=== PATIENT | male | born 1955 | race Caucasian/White ===

== ENCOUNTER 2020-11-15 11:45 | Outpatient (REF) | payer MEDICARE, SELFPAY ==
--- NOTE | ~2020-11-15 | XR_ITS ---
EXAMINATION: XR RIBS, LEFT CLINICAL INFORMATION: Pleurodynia. COMPARISON: None TECHNIQUE: 3 views of the left ribs were obtained. FINDINGS: There is a small left pleural effusion. Mild superjacent linear markings are seen as well. A definitive pneumothorax is not seen. The right lung is clear. The heart and mediastinal structures are unremarkable. Deformity seen in the anterolateral aspect of the first, second and sixth ribs. Deformity is also seen anteriorly in the left second and third ribs. XR/XR ribs LT min 3V w [id number] IMPRESSION: 1. Acute multilevel left rib fractures as detailed above. Additional acute nondisplaced fractures are suspected, but not as clearly visualized. 2. Small left pleural effusion with superjacent mild atelectasis.
[2020-11-15 13:52] LABS: MANUAL DIFF FLAG NO
[2020-11-15 13:59] LABS: Basophils Absolute Auto 0.1 X10*3/uL (0.0-0.2); Basophils Percent Auto 0.5 % (0-2); Eosinophils Absolute Auto 0.1 X10*3/uL (0.0-0.4); Eosinophils Percent Auto 0.5 % (0-4); Hematocrit 44.8 % (42-52); Hemoglobin 15.5 g/dl (14.0-18.0); Imm Gran Abs Auto 0.04 X10*3/uL (0.00-0.03); Imm Gran Pct Auto 0.4 % (0.0-0.4); Lymphocytes Absolute Auto 2.9 X10*3/uL (1.2-4.9); Lymphocytes Percent Auto 27.4 % (20-40); Mean Corpuscular HGB Conc 34.6 g/dl (31.0-36.0); Mean Corpuscular Hemoglobin 32.9 pg (27.0-33.0); Mean Corpuscular Volume 95.1 fL (80-98); Mean Platelet Volume 9.1 fL (9.4-12.4); Monocytes Absolute Auto 0.8 X10*3/uL (0.1-1.2); Monocytes Percent Auto 7.5 % (2-11); Neutrophils Absolute Auto 6.7 X10*3/uL (2.0-8.3); Neutrophils Percent Auto 63.7 % (45-73); Platelet Count 328 X10*3/uL (160-400); Red Blood Count 4.71 X10*6/uL (4.60-5.80); Red Cell Distribution Width 12.5 % (11.0-16.0); White Blood Count 10.5 X10*3/uL (4.8-10.8)
[2020-11-15 14:10] LABS: Estimated Average Glucose 94 mg/dL; Hemoglobin A1c % 4.9 %
[2020-11-15 14:59] LABS: Alanine Aminotransferase 21 U/L (0-40); Albumin Level 4.1 g/dL (3.5-5.0); Alkaline Phosphatase 66 U/L (39-117); Anion Gap 15 (12-20); Aspartate Amino Transferase 18 U/L (5-37); Bilirubin Direct 0.3 mg/dL (0.0-0.5); Bilirubin Total 0.7 mg/dL (0.0-1.0); Blood Urea Nitrogen 11 mg/dL (9-16); Calcium 9.5 mg/dL (8.4-10.2); Carbon Dioxide 28 mmol/L (22-29); Chloride 105 mmol/L (96-108); Cholesterol 163 mg/dL; Estimated Glomerular Filt Rate > 60; Glucose Random 112 mg/dL (60-115); HDL Cholesterol 47 mg/dL; LDL Cholesterol Calculated 88 mg/dl; Sodium 144 mmol/L (135-145); Triglycerides 140 mg/dL
== END 2020-11-15 11:46 | disposition home or self-care (01) ==
LOC: HO.HMGCX 11:45
PROVIDERS: PCP Internal Medicine; Visit Provider Internal Medicine
DX: Z00.00 Encounter for general adult medical examination without abnormal findings (principal); R07.81 Pleurodynia
CPT/HCPCS: 36415; 71101; 80048; 80061; 80076; 83036; 85025

== ENCOUNTER → 2020-11-16 13:41 | Outpatient (BNVA) | payer MEDICARE, SELFPAY | PROVIDERS: PCP Internal Medicine; Visit Provider Physician Assistant | DX: S22.39XA Fracture of one rib, unspecified side, initial encounter for closed fracture (principal) | CPT/HCPCS: Q3014 ==

== ENCOUNTER → 2021-05-04 09:34 | Outpatient (BNVA) | payer MEDICARE, SELFPAY | PROVIDERS: PCP Internal Medicine; Visit Provider Physician Assistant | CPT/HCPCS: Q3014 ==

== ENCOUNTER → 2022-05-24 13:25 | Outpatient (BNVA) | payer MEDICARE, SELFPAY | PROVIDERS: PCP Internal Medicine; Referring Provider Internal Medicine; Visit Provider Physician Assistant | DX: Z12.11 Encounter for screening for malignant neoplasm of colon (principal) | CPT/HCPCS: 99212 ==

== ENCOUNTER 2023-09-19 12:03 | Outpatient (REF) | payer MEDICARE, SELFPAY ==
[2023-09-19 14:46] LABS: MANUAL DIFF FLAG NO
[2023-09-19 14:56] LABS: Basophils Absolute Auto 0.1 X10*3/uL (0.0-0.2); Basophils Percent Auto 0.8 % (0-2); Eosinophils Absolute Auto 0.1 X10*3/uL (0.0-0.4); Eosinophils Percent Auto 1.7 % (0-4); Hematocrit 47.8 % (42.0-52.0); Hemoglobin 16.6 g/dl (14.0-18.0); Imm Gran Abs Auto 0.02 X10*3/uL (0.00-0.03); Imm Gran Pct Auto 0.3 % (0.0-0.4); Lymphocytes Absolute Auto 3.5 X10*3/uL (1.2-4.9); Lymphocytes Percent Auto 48.8 % (20-40); Mean Corpuscular HGB Conc 34.7 g/dl (31.0-36.0); Mean Corpuscular Hemoglobin 32.3 pg (27.0-33.0); Mean Platelet Volume 9.3 fL (9.4-12.4); Monocytes Absolute Auto 0.6 X10*3/uL (0.1-1.2); Monocytes Percent Auto 8.9 % (2-11); Neutrophils Absolute Auto 2.8 x10*3/uL (2.0-8.3); Neutrophils Percent Auto 39.5 % (45-73); Platelet Count 290 X10*3/uL (160-400); Red Blood Count 5.14 X10*6/uL (4.60-5.80); Red Cell Distribution Width 13.2 % (11.0-16.0); White Blood Count 7.1 X10*3/uL (4.8-10.8)
[2023-09-19 15:03] LABS: Estimated Average Glucose 97 mg/dL
[2023-09-19 15:23] LABS: Prostate Specific Antigen 1.02 ng/mL (<0.05-4.0)
[2023-09-19 15:27] LABS: Alanine Aminotransferase 45 U/L (0-40); Albumin Level 4.1 g/dL (3.5-5.0); Alkaline Phosphatase 76 U/L (39-117); Anion Gap 10 (12-20); Aspartate Amino Transferase 30 U/L (5-37); Bilirubin Total 0.4 mg/dL (0.0-1.0); Blood Urea Nitrogen 13 mg/dL (9-16); Calcium 9.8 mg/dL (8.4-10.2); Carbon Dioxide 27 mmol/L (22-29); Chloride 109 mmol/L (96-108); Cholesterol 165 mg/dL (<200); Estimated Glomerular Filt Rate > 60; Glucose Random 76 mg/dL (60-115); HDL Cholesterol 32 mg/dL (>40); LDL Cholesterol Calculated 78 mg/dL (<100); Potassium 3.9 mmol/L (3.3-5.1); Sodium 142 mmol/L (135-145); TSH reflex Free T4 1.51 uIU/mL (0.32-4.0); Total Protein 7.3 g/dL (6.5-8.0); Triglycerides 279 mg/dL (<150)
== END 2023-09-19 12:04 | disposition home or self-care (01) ==
LOC: HO.CHCLDS 12:03
PROVIDERS: Visit Provider Internal Medicine
DX: N52.9 Male erectile dysfunction, unspecified (principal); Z12.5 Encounter for screening for malignant neoplasm of prostate
CPT/HCPCS: 36415; 80053; 80061; 83036; 84153; 84443; 85025